=== PATIENT | male | born 1950 | race Two or more races ===

== ENCOUNTER 2021-12-08 10:15 | Inpatient (IN) | payer OTHER ==
[~2021-12-08] VITALS: Ht 180.3 cm; Wt 77.1 kg
[~2021-12-08 10:15] MED LIST: AVAPRO300 MG; CARDURA1 MG PO; CIPROFLOXACIN750 MG PO; CLONAZEPAM1 MG PO; DIOVAN HCT 160-1 TAB PO; DOCUSATE SODIU100 MG PO; GABAPENTIN800 MG PO; LIPITOR40 MG PO; NORVASC2.5 M1 PO; PERCOCET 5/3251 TAB PO; TOPROL XL50 MG
[2021-12-08] MEDS ORDERED: CRESTOR40 MG PO (12:40)
[2021-12-08] MEDS ORDERED: BRILINTA60 MG PO (12:40)
[2021-12-12] MEDS ORDERED: COLACE100 MG PO (09:22)
[2021-12-12] MEDS ORDERED: MEDROLPACK PO (09:23)
[2021-12-12] MEDS ORDERED: AMOX-CLAV 875-1 EACH PO (09:23)
[2021-12-12] MEDS ORDERED: NEURONTIN800 MG PO (09:23)
[2021-12-12] MEDS ORDERED: PERCOCET 5-3251 EACH PO (09:23)
== END 2021-12-13 19:13 | DRG 455 ==
LOC: O/R 12-12 05:49 → PED 12-12 05:49 → SURH 12-12 10:15 → PED 12-12 15:20
PROVIDERS: ADMIT Orthopaedic Surgery Orthopaedic Surgery of the Spine; ATTEND Orthopaedic Surgery Orthopaedic Surgery of the Spine
PROC: 0SG1071 Fusion of 2 or more Lumbar Vertebral Joints with Autologous Tissue Substitute, Posterior Approach, Posterior Column, Open Approach (ICD-10-PCS; 2021-12-12)
PROC: 0ST20ZZ Resection of Lumbar Vertebral Disc, Open Approach (ICD-10-PCS; 2021-12-12)
PROC: 0SG10A0 Fusion of 2 or more Lumbar Vertebral Joints with Interbody Fusion Device, Anterior Approach, Anterior Column, Open Approach (ICD-10-PCS; principal; 2021-12-12 11:30)
DX: M48.062 Spinal stenosis, lumbar region with neurogenic claudication (principal); M41.56 Other secondary scoliosis, lumbar region; M51.36 Other intervertebral disc degeneration, lumbar region; I10 Essential (primary) hypertension